=== PATIENT | male | born 1975 | race Caucasian/White ===

== ENCOUNTER 2019-12-28 13:19 | Emergency (ER) | payer SELFPAY ==
[2019-12-28] MEDS ORDERED: Nitroglycerin 0.4 MG Tab.SL SL ONE (13:49)
[2019-12-28] MEDS ORDERED: Aspirin 81 MG Tab.Chew PO ONE (13:49)
--- NOTE | 2019-12-28 13:57 | EDM.PDOC ---
ED HPI GENERAL MEDICAL PROBLEM - General Chief Complaint: Chest Pain Stated Complaint: CHEST PAIN, R ARM TINGLING Time Seen by Provider: 12/28/19 13:24 Source of Information: Reports: Patient History Limitations: Reports: No Limitations - History of Present Illness INITIAL COMMENTS - FREE TEXT/NARRATIVE: 44-year-old male with a history of GERD and cigarette smoking presents to the emergency department with left anterior chest and arm discomfort. Symptoms started after eating a hamburger for lunch. He did notice heart racing and then the chest discomfort. The chest discomfort lasted approximately 10 minutes. It was associated with diaphoresis, nausea or shortness of breath. He had no back pain. He admits to smoking tobacco but does not have a history of hypertension or hyperlipidemia. He has no family history of premature vascular disease. He is not diabetic. Takes Prilosec for GERD. Chest Pain Score (Numeric/FACES): 3 - Related Data Allergies Allergy/AdvReac Type Severity Reaction Status Date / Time No Known Allergies Allergy Verified 12/28/19 13:30 Home Meds: Home Meds NK [No Known Home Meds] 12/28/19 [History] Past Medical History Cardiovascular History: Reports: None Respiratory History: Reports: None Gastrointestinal History: Reports: Other (See Below) Other Gastrointestinal History: herina Genitourinary History: Reports: None Neurological History: Reports: None Psychiatric History: Reports: None Endocrine/Metabolic History: Reports: None Hematologic History: Reports: None Immunologic History: Reports: None Oncologic (Cancer) History: Reports: None Dermatologic History: Reports: None - Past Surgical History HEENT Surgical History: Reports: Tonsillectomy GI Surgical History: Reports: EGD, Hernia, Inguinal Other GI Surgeries/Procedures: 2 on right 1 on left Musculoskeletal Surgical History: Reports: Carpal Tunnel Other Musculoskeletal Surgeries/Procedures:: right Social & Family History - Tobacco Use Smoking Status *Q: Current Every Day Smoker Years of Tobacco use: 10 Packs/Tins Daily: 1 - Caffeine Use Caffeine Use: Reports: Coffee - Recreational Drug Use Recreational Drug Use: No ED ROS GENERAL - Review of Systems Review Of Systems: See Below Constitutional: Reports: No Symptoms HEENT: Reports: No Symptoms Respiratory: Denies: Shortness of Breath, Cough Cardiovascular: Reports: Chest Pain, Palpitations Endocrine: Reports: No Symptoms GI/Abdominal: Denies: Abdominal Pain : Reports: No Symptoms Musculoskeletal: Reports: No Symptoms Skin: Reports: No Symptoms Neurological: Reports: No Symptoms Psychiatric: Reports: No Symptoms ED EXAM, GENERAL - Physical Exam Exam: See Below Exam Limited By: No Limitations General Appearance: Alert, WD/WN Ears: Normal External Exam Nose: Normal Inspection Throat/Mouth: Normal Inspection Head: Normocephalic Neck: Normal Inspection Respiratory/Chest: No Respiratory Distress, Lungs Clear Cardiovascular: Regular Rate, Rhythm, No Edema, No Gallop, No JVD, No Murmur GI/Abdominal: Normal Bowel Sounds, Soft, Non-Tender Extremities: Normal Inspection, Non-Tender Neurological: Alert, Oriented Course - Vital Signs Last Recorded V/S: Last Vital Signs Temp 36.8 C 12/28/19 13:34 Pulse 84 12/28/19 13:34 Resp 16 12/28/19 13:34 BP 122/78 12/28/19 13:56 Pulse Ox 100 12/28/19 13:34 - Orders/Labs/Meds Orders: Active Orders 24 hr Category Date Time Status TROPONIN I [CHEM] Stat Lab 12/28/19 15:50 Ordered Labs: Laboratory Tests 12/28/19 12/28/19 12/28/19 Range/Units 14:00 14:00 14:00 WBC 9.7 (4.5-11.0) K/uL RBC 4.77 (4.30-5.90) M/uL Hgb 14.5 (12.0-15.0) g/dL Hct 43.3 (40.0-54.0) % MCV 91 (80-98) fL MCH 30 (27-31) pg MCHC 34 (32-36) % Plt Count 279 (150-400) K/uL Neut % (Auto) 71 H (36-66) % Lymph % (Auto) 21 L (24-44) % [place] % (Auto) 6 (2-6) % Eos % (Auto) 1 L (2-4) % Baso % (Auto) 0 (0-1) % D-Dimer, Quantitative < 100 (0.0-400.0) ng/mL Sodium (140-148) mmol/L Potassium (3.6-5.2) mmol/L Chloride (100-108) mmol/L Carbon Dioxide (21-32) mmol/L Anion Gap (5.0-14.0) mmol/L BUN (7-18) mg/dL Creatinine (0.8-1.3) mg/dL Est Cr Clr Drug Dosing mL/min Estimated GFR (MDRD) (>60) Glucose (74-106) mg/dL Calcium (8.5-10.1) mg/dL Total Bilirubin (0.2-1.0) mg/dL AST (15-37) U/L ALT (12-78) U/L Alkaline Phosphatase (46-116) U/L Troponin I < 0.017 (0.000-0.056) ng/mL NT-Pro-B Natriuret Pep (5-125) pg/mL Total Protein (6.4-8.2) g/dL Albumin (3.4-5.0) g/dL Globulin (2.3-3.5) g/dL Albumin/Globulin Ratio (1.2-2.2) 12/28/19 Range/Units 14:00 WBC (4.5-11.0) K/uL RBC (4.30-5.90) M/uL Hgb (12.0-15.0) g/dL Hct (40.0-54.0) % MCV (80-98) fL MCH (27-31) pg MCHC (32-36) % Plt Count (150-400) K/uL Neut % (Auto) (36-66) % Lymph % (Auto) (24-44) % [place] % (Auto) (2-6) % Eos % (Auto) (2-4) % Baso % (Auto) (0-1) % D-Dimer, Quantitative (0.0-400.0) ng/mL Sodium 142 (140-148) mmol/L Potassium 3.6 (3.6-5.2) mmol/L Chloride 105 (100-108) mmol/L Carbon Dioxide 30 (21-32) mmol/L Anion Gap 7.2 (5.0-14.0) mmol/L BUN 8 (7-18) mg/dL Creatinine 1.0 (0.8-1.3) mg/dL Est Cr Clr Drug Dosing 92.61 mL/min Estimated GFR (MDRD) > 60 (>60) Glucose 102 (74-106) mg/dL Calcium 8.9 (8.5-10.1) mg/dL Total Bilirubin 0.2 (0.2-1.0) mg/dL AST 17 (15-37) U/L ALT 23 (12-78) U/L Alkaline Phosphatase 54 (46-116) U/L Troponin I (0.000-0.056) ng/mL NT-Pro-B Natriuret Pep 14 (5-125) pg/mL Total Protein 6.4 (6.4-8.2) g/dL Albumin 3.8 (3.4-5.0) g/dL Globulin 2.6 (2.3-3.5) g/dL Albumin/Globulin Ratio 1.5 (1.2-2.2) Meds: Medications Discontinued Medications Generic Name Dose Route Start Last Admin Trade Name Dre PRN Reason Stop Dose Admin Aspirin 324 mg 12/28/19 13:49 12/28/19 13:55 Aspirin PO 12/28/19 13:50 324 mg ONETIME ONE Administration Nitroglycerin 0.4 mg 12/28/19 13:49 12/28/19 13:56 Nitrostat SL 12/28/19 13:50 0.4 mg ONETIME ONE Administration Departure - Departure Time of Disposition: 15:45 Disposition: Against Medical Advice 07 Condition: Good Clinical Impression: Atypical chest pain Instructions: Nonspecific Chest Pain, Adult Referrals: PCP,None [Primary Care Provider] - Forms: ED Department Discharge Additional Instructions: Follow up with your doctor if your symptoms continue. Quit smoking. Sepsis Event Note (ED) - Evaluation Sepsis Screening Result: No Definite Risk - Focused Exam Vital Signs: Vital Signs Temp Pulse Resp BP BP Pulse Ox 12/28/19 13:56 122/78 12/28/19 13:34 36.8 C 84 16 151/83 H 100 12/28/19 13:29 36.8 C 84 16 151/83 H 100 - My Orders Last 24 Hours: My Active Orders 12/28/19 15:50 TROPONIN I [CHEM] Stat - Assessment/Plan Last 24 Hours: My Active Orders 12/28/19 15:50 TROPONIN I [CHEM] Stat
--- NOTE | 2019-12-28 14:20 | CR ---
CHEST: Portable 12/28/2019 2:06 PM CLINICAL HISTORY:Chest pain COMPARISON:None FINDINGS: The heart size, pulmonary vascularity and hilar structures are normal. No infiltrate effusion or pneumothorax is seen. IMPRESSION: No acute cardiopulmonary process.
== END 2019-12-28 15:45 | disposition left against medical advice (07) ==
LOC: JP.ED 13:19
DX: R07.89 Other chest pain (principal); F17.210 Nicotine dependence, cigarettes, uncomplicated
CPT/HCPCS: 36415; 71045; 80053; 83880; 84484; 85025; 85379; 93005; 99285; A9270; 93010